=== PATIENT | female | born 1935 | race Caucasian/White ===

== ENCOUNTER → 2017-05-09 | Outpatient (CLI) | payer MEDICARE, BC ==
[~2017-05-09] MED LIST: ALB18R INH; AMLO-96 PO; CEPH-13 PO; CETI-176 PO; DOXY-179 PO; DUL100/5PT INH; FAMO-67 PO; FLUT16SP19 NS; FLUT1AER INH; IBUP600T22 PO; LEVO50TA86 PO; LEVO75TA73 PO; LOR5/325 PO; LOSA100T67 PO; METO-235 PO; NITR-105 PO; ONDA4TAB PO; PER PO; SIMV-49 PO
== END ==
LOC: LAB 10:30
PROVIDERS: ATTEND Internal Medicine
DX: E03.9 Hypothyroidism, unspecified (principal); N39.0 Urinary tract infection, site not specified; R35.0 Frequency of micturition; B96.20 Unspecified Escherichia coli [E. coli] as the cause of diseases classified elsewhere
CPT/HCPCS: 36415; 81001; 84443; 87077; 87088; 87186

== ENCOUNTER → 2017-07-26 | Outpatient (CLI) | payer MEDICARE, BC ==
[~2017-07-26] MED LIST changes: +ESTR42.59 VG
== END ==
LOC: LAB 15:22
PROVIDERS: ATTEND Family Medicine
DX: N39.0 Urinary tract infection, site not specified (principal); B96.20 Unspecified Escherichia coli [E. coli] as the cause of diseases classified elsewhere
CPT/HCPCS: 81001; 87077; 87088; 87186

== ENCOUNTER 2017-08-10 13:00 | Outpatient (RCR) | payer MEDICARE, BC ==
--- NOTE | 2017-08-01 11:44 | PT INITIAL EVALUATION ---
MEDICAL DIAGNOSIS: Sciatic leg pain, chronic left SI joint pain TREATMENT DIAGNOSIS: same DATE OF ONSET: 08/01/15 SUBJECTIVE: Crista Gonzales presents to physical therapy with complaints of L SI pain with pain radiating down her L LE, however, she states that it does radiate down her R LE as well. She reports that the pain becomes worse with sitting and lying and better with bending, as the day progresses, in the am, standing, and walking. She reports that this pain started approximately 2 years ago following kidney stones removal and has not gotten any better or worse over the last two years. She denies any recent accidents or surgeries. She reports that this pain has not interfered with any of her functional activities such as walking and golf. She reports that it is worse with riding in a car, which they frequently do. . Pain location is L PSIS. Pain scale is 0 on a ten point pain scale. REHAB PROBLEM LIST: Increased Pain Decreased ROM Decreased Strength Decreased Endurance Decreased Function PREVIOUS MEDICAL HISTORY: See EMR OCCUPATION: Retired OBJECTIVE: Posture: She demonstrated minimal forward head, B rounded shoulders, and reduced lumbar lordosis. ROM: Trunk AROM: flexion: NIL with muscular end feel. extension: NIL with muscular end feel. side gliding R: minimal restriction with painful end feel. side gliding L: NIL with muscular end feel. Palpation: TTP: over L PSIS Sensation: reduced sensation on B feet: L5-S1-S2 dermatomes Special Tests: Repeated extension: pain during the test and worse following the test. Repeated flexion: pain during the test and worse following the test. Repeated extension with hips shifted to the left resulted in pain during the test and better following the test. Mobility: Independent Gait: She demonstrated normal gait mechanics ASSESSMENT: Crista will benefit from skilled physical therapy addressing the list impairments to improve function and return to prior level of function. Based on examination, her provisional classification will be posterior lateral derangement that has responded well to extension-lateral based principles. She is independent on her specific exercise. Short Term Goals 2 weeks: Pt will demonstrate centralized low back pain to improve function and QOL. 4 weeks: Pt will demonstrate abolished low back pain to improve function and QOL. 6 weeks: Pt will return to prior level of function without any low back pain or radiating pain to improve function and QOL. Patient's Goals reduce leg pain PLAN: Patient to be seen for Manual Therapy/STM/MET Strengthening/condition Range of Motion Spinal Stabilization Work Hardening/Cond Stretching Neuromuscular Re-ed Closed Chain Program Posture/Body mechanics Home Exercise Program Therapeutic Activities 2x/Week for 6 Weeks If you have any questions, comments, or concerns about this report or plan, please contact me at . Thank you, Kevin Ferguson, PT, DPT MTDD
--- NOTE | 2017-08-10 13:22 | PT PLAN OF CARE ---
Physician: Barby Valdovinos MD Patient is being seen: 1-2x/week Therapist: Kevin Ferguson, PT, DPT Medical Diagnosis: Sciatic leg pain, chronic left SI joint pain Treatment Diagnosis: same Date of Onset: 08/01/15 Date of Initial Evaluation: 07/31/17 Date patient was last seen: 08/10/17 Number of treatments: 4 Number of cancellations/No shows: 0 INTERVENTIONS: Manual Therapy/STM/MET Strengthening/condition Range of Motion Spinal Stabilization Work Hardening/Cond Stretching Neuromuscular Re-ed Closed Chain Program Posture/Body mechanics Home Exercise Program Therapeutic Activities GOALS: 2 weeks: Pt will demonstrate centralized low back pain to improve function and QOL. MET 4 weeks: Pt will demonstrate abolished low back pain to improve function and QOL. MET 6 weeks: Pt will return to prior level of function without any low back pain or radiating pain to improve function and QOL. MET PATIENT'S GOAL: reduce leg pain: MET Status of Patient's Goals: MET Patient Compliance: Excellent Prognosis: Excellent Reasons for continuing therapy: This is a discharge note for Crista Gonzales. She reports that she is doing well. She reports that she continues to perform her specific exercise with good results. She denies any low back pain or leg pain. She reports that she feels like she is back to normal. She demonstrates abolished low back pain and abolished radiating pain, independent on factors to avoid and to prevent reoccurrences, independent on her specific exercise, and full trunk AROM in all directions. She has met all of her goals. As a result, she will be discharged from PT. Posture: She demonstrated minimal forward head, B rounded shoulders, and reduced lumbar lordosis. ROM: Trunk AROM: flexion: NIL with muscular end feel. extension: NIL with muscular end feel. side gliding R: NIL with muscular end feel. side gliding L: NIL with muscular end feel. Mobility: Independent If you have any questions, please contact me at [phone]. Thank you, Kevin Ferguson, PT, DPT [facility]
== END 2017-08-10 15:53 | disposition home or self-care (01) ==
LOC: PT 13:00
PROVIDERS: ATTEND Family Medicine
DX: M54.30 Sciatica, unspecified side (principal); M53.3 Sacrococcygeal disorders, not elsewhere classified; Z87.442 Personal history of urinary calculi
CPT/HCPCS: 97161

== ENCOUNTER → 2017-10-25 | Outpatient (CLI) | payer MEDICARE, BC ==
[~2017-10-25] MED LIST changes: +ALBU8.5H IH
[2017-10-25 10:46] LABS: PLATELET COUNT, AUTOMATED 257 K/uL (150-450)
== END ==
LOC: LAB 10:28
PROVIDERS: ATTEND Family Medicine
DX: E03.9 Hypothyroidism, unspecified (principal); I10 Essential (primary) hypertension
CPT/HCPCS: 36415; 82040; 82247; 82310; 82374; 82435; 82465; 82565; 82947; 83718; 84075; 84132; 84155; 84295; 84443; 84450; 84460; 84478; 84520; 85025

== ENCOUNTER → 2017-12-06 | Outpatient (CLI) | payer MEDICARE, BC | LOC: LAB 10:44 | PROVIDERS: ATTEND Family Medicine | DX: E03.9 Hypothyroidism, unspecified (principal) | CPT/HCPCS: 36415; 84443 ==

== ENCOUNTER → 2018-01-24 | Outpatient (CLI) | payer MEDICARE, BC ==
[~2018-01-24] MED LIST changes: +AMLO-111 PO; -AMLO-96 PO; -LOSA100T67 PO; +LOSA100T69 PO
== END ==
LOC: LAB 10:01
PROVIDERS: ATTEND Family Medicine
DX: E03.9 Hypothyroidism, unspecified (principal)
CPT/HCPCS: 36415; 84443

== ENCOUNTER → 2018-03-19 | Outpatient (CLI) | payer MEDICARE, BC ==
[~2018-03-19] MED LIST changes: +CARB15DR72 OP; +FLU180SY11 IM; +LEVO25TA61 PO; +LOTE5GEL OD; +OMEG-5; +VENL37.53 PO
== END ==
LOC: LAB 09:30
PROVIDERS: ATTEND Family Medicine
DX: E03.9 Hypothyroidism, unspecified (principal); I10 Essential (primary) hypertension
CPT/HCPCS: 36415; 82310; 82374; 82435; 82565; 82947; 84132; 84295; 84443; 84520

== ENCOUNTER → 2018-09-17 | Outpatient (CLI) | payer MEDICARE, BC ==
[~2018-09-17] MED LIST changes: -AMLO-111 PO; +AMLO-125 PO; -LOSA100T69 PO; +LOSA100T75 PO
[2018-09-17 10:23] LABS: PLATELET COUNT, AUTOMATED 281 K/uL (150-450)
== END ==
LOC: LAB 09:55
PROVIDERS: ATTEND Family Medicine
DX: E03.9 Hypothyroidism, unspecified (principal); I10 Essential (primary) hypertension
CPT/HCPCS: 36415; 82040; 82247; 82310; 82374; 82435; 82565; 82947; 84075; 84132; 84155; 84295; 84443; 84450; 84460; 84520; 85025

== ENCOUNTER → 2018-10-29 | Outpatient (CLI) | payer MEDICARE, BC | LOC: LAB 09:29 | PROVIDERS: ATTEND Family Medicine | DX: E03.9 Hypothyroidism, unspecified (principal) | CPT/HCPCS: 36415; 84443 ==

== ENCOUNTER → 2018-11-21 | Outpatient (CLI) | payer MEDICARE, BC ==
[~2018-11-21] MED LIST changes: +CEF300 PO; +CIPR-214 PO; +METH4TAB66 PO; +VENL75CA4 PO
== END ==
LOC: LAB 10:48
PROVIDERS: ATTEND Otolaryngology
DX: J34.89 Other specified disorders of nose and nasal sinuses (principal); J33.9 Nasal polyp, unspecified; J32.0 Chronic maxillary sinusitis; B95.61 Methicillin susceptible Staphylococcus aureus infection as the cause of diseases classified elsewhere
CPT/HCPCS: 87071; 87077; 87186

== ENCOUNTER → 2018-11-27 | Outpatient (CLI) | payer MEDICARE, BC ==
--- NOTE | 2018-11-27 15:54 | RADIOLOGY IMAGING REPORT ---
FACILITY: [facility] PATIENT NAME: Crista Gonzales : 1935 MR: [id number] V: [id number] EXAM DATE: ORDERING PHYSICIAN: THEO CHOI TECHNOLOGIST: Location: [facility] [place] Patient: Crista Gonzales : 1935 Visit/Account:[id number] Date of Sevice: 11/27/2018 EXAMINATION: CT of the Paranasal Sinuses HISTORY: Chronic sinusitis. TECHNIQUE: Contiguous axial images were obtained through the paranasal sinuses without intravenous c ontrast administration. Coronal and sagittal reformatted images were obtained from the axial source d pia. One of the following dose optimization techniques was utilized in the performance of this exam: Autom ated exposure control; adjustment of the mA and/or kV according to the patient's size; or use of an i terative reconstruction technique. Specific details can be referenced in the facility's radiology C T exam operational policy. COMPARISON: Sinus CT dated 12/27/2010. FINDINGS: Maxillary sinuses: Small defects in the anterior mendosa of the maxillary sinuses are probably related to prior surgery. Bilateral medial maxillary antrostomy. Mild mucosal thickening. Mild calcified s ecretions in the right maxillary sinus. Frontal sinuses: Nonocclusive mucosal thickening in the right frontal drainage pathway. Frontal sin uses are otherwise clear. Ethmoid air cells: Bilateral ethmoidectomy. Mild mucosal thickening in the residual ethmoid cavities . Sphenoid sinuses: Bilateral sphenoidotomy. Minimal mucosal thickening. Nasal septum / nasal cavity: Rightward septal deviation anteriorly. Postsurgical changes in the hard palate. Orbits: Negative. Visualized intracranial contents/soft tissues: Negative. TMJs: Negative. IMPRESSION: Postop endoscopic sinus surgery with mild mucosal thickening. Report Dictated By: Steve Edward MD at 11/27/2018 3:42 PM Report E-Signed By: Steve Edward MD at 11/27/2018 3:46 PM WSN:[id number]
== END ==
LOC: CT 01:32
PROVIDERS: ATTEND Otolaryngology
DX: J32.0 Chronic maxillary sinusitis (principal); J33.9 Nasal polyp, unspecified
CPT/HCPCS: 70486